=== PATIENT | male | born 1995 | race Caucasian/White ===

== ENCOUNTER 2023-11-08 06:34 | Emergency (ER) | payer BC, MEDICAID, SELFPAY ==
[2023-11-08 06:38] VITALS: BP 117/79; PULSE 72; RESP 16; TEMP 36.8; O2SAT 97; BMI 23.9
--- NOTE | 2023-11-08 06:38 | XRR_ITS ---
PROCEDURE INFORMATION: Exam: XR Left Hand Exam date and time: 11/08/2023 6:47 AM Age: 27 years old Clinical indication: Injury or trauma; Fall; Blunt trauma (contusions or hematomas); Hand; Left TECHNIQUE: Imaging protocol: Radiologic exam of the left hand. Views: 3 or more views. COMPARISON: No relevant prior studies available. FINDINGS: Bones/joints: Normal. Soft tissues: Normal. XR/XR hand LT min 3V* [id number] IMPRESSION: No acute findings.
--- NOTE | 2023-11-08 06:39 | XRR_ITS ---
PROCEDURE INFORMATION: Exam: XR Left Wrist Exam date and time: 11/08/2023 6:49 AM Age: 27 years old Clinical indication: Injury or trauma; Fall; Blunt trauma (contusions or hematomas); Wrist; Left TECHNIQUE: Imaging protocol: Radiologic exam of the left wrist. Views: 3 or more views. COMPARISON: CR XR hand LT min 3V* [id number] 11/08/2023 6:47 AM FINDINGS: Bones/joints: Normal. No acute osseous, joint, or soft tissue abnormality. Soft tissues: Normal. XR/XR wrist LT min 3V* [id number] IMPRESSION: No acute findings.
[2023-11-08 06:46] VITALS: BP 117/79; PULSE 73; RESP 16; O2SAT 96
--- NOTE | 2023-11-08 07:04 | ED_ITS ---
HPI - Extremity Injury (Upper) General: Chief Complaint: Trauma Stated Complaint: left hand injury Time Seen by Provider: 11/08/23 06:36 Source: patient Mode of arrival: ambulatory Limitations: no limitations History of Present Illness: Patient is a 27-year-old male who presents to ED today for evaluation of a left hand injury. Patient tells me just prior to arrival he was walking in his home and when he accidentally slipped and fell. Patient states he landed on his left hand and struck his knuckles on the ground. He is complaining of pain and swelling mainly to his third MCP joint. He has no other complaints or injuries at this time. MD complaint: injury to: left and hand Onset (ago): hour(s) Other Extremity Injury: Left: hand Other injuries: none Place: home Severity: moderate Relieving factors: immobilization Exacerbating factors: movement of extremity Context: fall and direct blow Associated symptoms: Reports no associated symptoms; Denies neck pain or weakness in extremities Review of Systems Musc: Reports: extremity pain (L hand), extremity swelling (L hand), joint pain (L 3rd MCP joint) and joint swelling (L 3rd MCP joint); Denies: neck pain or back pain Neuro: Denies: numbness in extremities, weakness in extremities or sensory changes [facility] ED PFSH: Medical History Psychiatric care Physical Exam Const: COMMON NORMALS: no acute distress, patient oriented x3, no limitations, alert and well nourished Extremity: COMMON NORMALS: normal to inspection, capillary refill normal, no joint enlargement and no clubbing, cyanosis or edema GENERAL: Yes normal exam except as noted LEFT UPPER EXTREMITY: Yes hand & digits Left hand and digits: Yes inspection (swelling overlying dorsal 3rd MCP joint), Yes palpation (TTP same area of concern; no bony crepitus noted), Yes ROM (limited secondary to pain) and Yes neurovascular exam (normal) Neuro: COMMON NORMALS: patient oriented x3, moves all extremities, no focal motor deficits and no sensory deficits noted SENSORIUM/ORIENTATION: Yes alert Skin: NARRATIVE SKIN EXAM: no overlying abrasions/lacerations on hand Course Vital Signs: Vital signs: Vital Signs Temperature 98.3 F 11/08/23 06:38 Pulse Rate 73 11/08/23 06:46 Respiratory Rate 16 11/08/23 06:46 Blood Pressure 117/79 11/08/23 06:46 Pulse Oximetry 96 11/08/23 06:46 Oxygen Delivery Me thod Room Air 11/08/23 06:38 MDM - Extremity Injury (Upper) Medical Decision Making XRs negative. Discussed conservative therapies at home. He can follow-up with primary care in 1 to 2 weeks if pain persists. Lab Data Radiology Impressions Hand X-Ray 11/08/23 06:38 IMPRESSION: No acute findings. Wrist X-Ray 11/08/23 06:39 IMPRESSION: No acute findings. All radiology interpretation(s) finalized by discharge Discharge Plan Discharge Patient Disposition: Home Clinical Impression: Contusion of hand, left Qualifiers: Encounter type: initial encounter Qualified Code(s): S60.222A - Contusion of left hand, initial encounter Condition: Stable Prescriptions: No Action No Known Home Medications Discharge Orders: Discharge ED (Routine); Ordered 11/08/23 Ordered By: Fela Morgan Patient Instructions: Contusion, RICE Therapy Coding Level of Care Code ED Advanced Solutions Architect for Mona Murcia
== END 2023-11-08 07:27 | disposition home or self-care (01) ==
PROVIDERS: Emergency Provider Physician Assistant
DX: S60.222A Contusion of left hand, initial encounter (principal); W18.30XA Fall on same level, unspecified, initial encounter
CPT/HCPCS: 73110; 73130; 99283

== ENCOUNTER 2023-12-22 10:43 | Inpatient (IN) | payer BC, SELFPAY ==
[2023-12-22 10:45] VITALS: BP 118/71; PULSE 78; RESP 16; TEMP 36.6; O2SAT 99
[2023-12-22 11:00] VITALS: RESP 16
[2023-12-22 11:00] LABS: Add Urine Microscopic? NO; Charge for UA Resulting for Rev
--- NOTE | 2023-12-22 11:09 | ED.C_ITS ---
HPI - Psych 2 General: Chief Complaint: Psychiatric Symptoms Stated Complaint: MHE Time Seen by Provider: 12/22/23 10:51 Source: patient Mode of arrival: ambulatory History of Present Illness: 28-year-old male presents to the emergen cy room with complaints of suicidal and homicidal ideation. He states he frequently has thoughts of harming others this morning he began to feel as if things to be better if he was not here began having thoughts of harming himself. He has not made any specific plans to harm himself or anyone else does not have any particular person that he is targeting or has thoughts of hurting specifically or in a specific way. He has not previously been admitted he is not currently on any medications he is not seen by any mental health professionals. MD complaint: suicidal ideation and feels depressed Onset (ago): unknown Duration: constant History of same: Yes Relieving factors: none Exacerbating factors: none Associated symptoms: Reports homicidal ideation and suicidal ideation; Deny auditory hallucinations, visual hallucinations, delusions, depression or racing thoughts If self harm: admits thoughts of self harm Review of Systems 2 Const: Denies: fever(s) or chills Card: Denies: chest pain Resp: Denies: dyspnea GI: Denies: abdominal pain : Denies: dysuria, urinary frequency or urinary urgency Musc: Denies: neck pain or back pain Skin/Breast: Denies: rash Psych: Reports: suicidal ideation and homicidal ideation; Denies: depression, visual hallucinations or auditory hallucinations PFSH ED 2 PFSH: Medical History Psychiatric care Social History Smoking and tobacco/nicotine status: current every day tobacco/nicotine user Physical Exam 2 Const: COMMON NORMALS: no acute distress GENERAL APPEARANCE: cooperative and comfortable ORIENTATION/CONSCIOUSNESS: Yes awake, Yes oriented to person, Yes oriented to place and Yes oriented to time HENMT: COMMON NORMALS: normocephalic, atraumatic and hearing grossly normal bilaterally HEAD & SCALP: normocephalic and atraumatic Resp: COMMON NORMALS: normal respiratory effort, No retractions, No use of accessory muscles and clear to auscultation bilaterally AUSCULTATION: clear to auscultation bilaterally Cardio: COMMON NORMALS: regular rate, regular rhythm and No murmurs present (Cardio) RATE: regular rate RHYTHM: regular rhythm GI: COMMON NORMALS: Soft to palpation and No hepatosplenomegaly present A USCULTATION: Yes normoactive bowel sounds PALPATION: Yes Soft to palpation, No Tenderness to palpation present (GI), No Guarding due to palpation present (GI) and Yes No hepatosplenomegaly present Extremity: COMMON NORMALS: normal to inspection, capillary refill normal, no clubbing, cyanosis or edema, no calf tenderness and no pedal edema Neuro: SENSORIUM/ORIENTATION: Yes oriented to person, Yes oriented to place and Yes oriented to time Psych: THOUGHT CONTENT: No delusions Skin: COMMON NORMALS: no rashes or lesions noted GENERAL SKIN EXAM: no rashes or lesions noted Course 2 Vital Signs: Vital signs: Vital Signs Temperature 98.5 F 12/27/23 06:00 Pulse Rate 59 L 12/27/23 06:00 Respiratory Rate 17 12/27/23 06:00 Blood Pressure 118/73 12/27/23 06:00 Pulse Oximetry 96 12/27/23 06:00 Oxygen Delivery Me thod Room Air 12/27/23 06:00 MDM - Psych Medical Decision Making Admitted for suicidal ideation. Discussed Dr. Carlin orders written Differential Diagnosis Likely suicidal ideation and depression Medical Records I reviewed the patient's medical records. Lab Data I reviewed the patient's lab results. 12/22/23 11:35 12/22/23 11:35 Laboratory Results WBC 4.35 10^3/uL (3.29-11.43) 12/22/23 11:35 RBC 4.78 10^6/uL (3.85-5.65) 12/22/23 11:35 Hgb 15.10 g/dL (11.27-16.99) 12/22/23 11:35 Hct 44.0 % (37-53) 12/22/23 11:35 MCV 92.1 fl (82-101) 12/22/23 11:35 MCH 31.6 pg (27-33) 12/22/23 11:35 MCHC 34.3 g/dL (30-55) 12/22/23 11:35 RDW 12.1 % (12.1-15.1) 12/22/23 11:35 Plt Count 244 10^3/cmm (157-399) 12/22/23 11:35 MPV 9.5 fL (7.4-10.4) 12/22/23 11:35 Neut % (Auto) 48.2 % 12/22/23 11:35 Lymph % (Auto) 38.2 % 12/22/23 11:35 [place] % (Auto) 6.9 % 12/22/23 11:35 Eos % (Auto) 5.1 % 12/22/23 11:35 Baso % (Auto) 1.4 % 12/22/23 11:35 Neut # (Auto) 2.10 10^3/uL (1.8-7.7) 12/22/23 11:35 Lymph # (Auto) 1.7 10^3/uL (0.8-4.8) 12/22/23 11:35 [place] # (Auto) 0.3 10^3/uL (0.2-0.9) 12/22/23 11:35 Eos # (Auto) 0.2 10^3/uL (0.0-0.8) 12/22/23 11:35 Baso # (Auto) 0.1 10^3/uL (0.0-0.1) 12/22/23 11:35 Nucleated RBC % (auto) 0 % 12/22/23 11:35 Nucleated RBCs # 0.0 /100WBC 12/22/23 11:35 Sodium 134 mmol/L (136-145) L 12/22/23 11:35 Potassium 4.1 mmol/L (3.5-5.1) 12/22/23 11:35 Chloride 99 mmol/L (98-107) 12/22/23 11:35 Carbon Dioxide 26 mmol/L (22-29) 12/22/23 11:35 Anion Gap 13.1 (5-19) 12/22/23 11:35 BUN 9 mg/dL (6-20) 12/22/23 11:35 Creatinine 1.0 mg/dL (0.7-1.2) 12/22/23 11:35 GFR Calculation 90.3 mL/min (90-130) 12/22/23 11:35 Glucose 105 mg/dL (65-115) 12/22/23 11:35 Calculated Osmolality 277 mOsm/kg (285-295) L 12/22/23 11:35 Calcium 8.7 mg/dL (8.5-10.5) 12/22/23 11:35 Total Bilirubin 0.2 mg/dL (0.15-1.2) 12/22/23 11:35 AST 20 U/L (0-40) 12/22/23 11:35 ALT 13 U/L (0-41) 12/22/23 11:35 Alkaline Phosphatase 57 U/L (40-130) 12/22/23 11:35 Total Protein 6.9 g/dL (6.6-8.7) 12/22/23 11:35 Albumin 4.2 g/dL (3.5-5.2) 12/22/23 11:35 Globulin 2.7 g/dL (1.3-4.6) 12/22/23 11:35 Urine Color Straw (Yellow) 12/22/23 10:57 Urine Appearance Clear (CLEAR) 12/22/23 10:57 Urine pH 6.5 (5-7) 12/22/23 10:57 Ur Specific [place] 1.005 (1.005-1.030) 12/22/23 10:57 Urine Protein Neg (Negative) 12/22/23 10:57 Urine Glucose (UA) Norm (Normal) 12/22/23 10:57 Urine Ketones Negative (Negative) 12/22/23 10:57 Urine Blood Neg (Negative) 12/22/23 10:57 Urine Nitrate Negative (Negative) 12/22/23 10:57 Urine Bilirubin Neg (Negative) 12/22/23 10:57 Urine Urobilinogen Neg mg/dL (Negative) 12/22/23 10:57 Ur Leukocyte Esterase Negative (Negative) 12/22/23 10:57 Salicylates < 0.3 mg/dL (3-10) L 12/22/23 11:35 Urine Opiates Screen Negative ng/mL (Negative) 12/22/23 10:57 Acetaminophen < 5.0 ug/mL (10-30) L 12/22/23 11:35 Ur Barbiturates Screen Negative ng/mL (Negative) 12/22/23 10:57 Ur Phencyclidine Scrn Negative ng/mL (Negative) 12/22/23 10:57 Ur Amphetamines Screen Negative ng/mL (Negative) 12/22/23 10:57 U Benzodiazepines Scrn Negative ng/mL (Negative) 12/22/23 10:57 Urine Cocaine Screen Negative ng/mL (Negative) 12/22/23 10:57 U Marijuana (THC) Screen Positive ng/mL (Negative) H 12/22/23 10:57 Ethyl Alcohol < 10 mg/dL (0-10) 12/22/23 11:35 No radiology studies performed this visit Discharge Plan Discharge Patient Disposition: Admitted As Inpatient Admit Provider: Jose Alfredo Dave Clinical Impression: Suicidal ideation Condition: Stable Coding Level of Care Code ED Clinique Counter Manager for Mona Murcia
[2023-12-22 11:12] LABS: Amphetamines Screen Urine Negative (Negative); Barbiturates Screen Urine Negative (Negative); Benzodiazepines Screen Urine Negative (Negative); Cocaine Screen Urine Negative (Negative); Opiate Screen Urine Negative (Negative); PCP Screen Urine Negative (Negative); THC Screen Urine Positive (Negative)
[2023-12-22 11:13] LABS: Bilirubin Urine Neg (Negative); Blood Urine Neg (Negative); Glucose Urine UA Norm (Normal); Ketones Urine Negative (Negative); Leukocyte Esterase Urine Negative (Negative); Nitrate Urine Negative (Negative); Protein Urine Neg (Negative); Specific Gravity, Urine 1.005 (1.005-1.030); Urine Appearance Clear (CLEAR); Urine Color Straw (Yellow); Urobilinogen Urine Neg (Negative); pH Urine 6.5 (5-7)
[2023-12-22 11:46] LABS: Basophils # 0.1 10^3/uL (0.0-0.1); Basophils % 1.4 %; Eosinophils # 0.2 10^3/uL (0.0-0.8); Eosinophils % 5.1 %; Lymphocytes # 1.7 10^3/uL (0.8-4.8); Lymphocytes % 38.2 %; Mean Corpuscular HGB Conc 34.3 g/dL (30-55); Mean Corpuscular Hemoglobin 31.6 pg (27-33); Mean Corpuscular Volume 92.1 fl (82-101); Mean Platelet Volume 9.5 fL (7.4-10.4); Monocytes # 0.3 10^3/uL (0.2-0.9); Monocytes % 6.9 %; Neutrophils % 48.2 %; Nucleated Red Blood Cells % 0 %; Platelet Count 244 10^3/cmm (157-399); Red Blood Count 4.78 10^6/uL (3.85-5.65); Red Cell Distribution Width 12.1 % (12.1-15.1); White Blood Count 4.35 10^3/uL (3.29-11.43)
[2023-12-22 12:07] LABS: Alanine Aminotransferase 13 U/L (0-41); Albumin Level 4.2 g/dL (3.5-5.2); Alkaline Phosphatase 57 U/L (40-130); Anion Gap 13.1 (5-19); Aspartate Amino Transferase 20 U/L (0-40); Blood Urea Nitrogen 9 mg/dL (6-20); Calcium 8.7 mg/dL (8.5-10.5); Carbon Dioxide 26 mmol/L (22-29); Chloride 99 mmol/L (98-107); Creatinine Clr Calc Pharmacy 91.4008; Globulin 2.7 g/dL (1.3-4.6); Glomerular Filtration Rate 90.3 mL/min (90-130); Glucose 105 mg/dL (65-115); Osmolality Calculated 277 mOsm/kg (285-295); Potassium 4.1 mmol/L (3.5-5.1); Sodium 134 mmol/L (136-145); Total Bilirubin 0.2 mg/dL (0.15-1.2); Total Protein 6.9 g/dL (6.6-8.7)
[2023-12-22 12:09] LABS: Acetaminophen < 5.0 ug/mL (10-30); Alcohol Level < 10 mg/dL (0-10); Salicylate < 0.3 mg/dL (3-10)
[2023-12-22 13:53] VITALS: RESP 16
[2023-12-22 17:13] VITALS: RESP 16
[2023-12-22 17:25] VITALS: BP 108/71; PULSE 70; RESP 16; TEMP 37.3; O2SAT 98
--- NOTE | 2023-12-22 18:33 | PC.NURSE ---
Admission Note Pt was admitted from our ER at 1723. Pt is calm and cooperative during admission. Pt stated that he is here because for the past 6-8 months he has been having thoughts of hurting people and this morning when he woke up this morning the thoughts were just too much to handle and it scared him. During admission pt denied SI/HI. He did endorse having auditory hallucinations. He said he hears voices telling him he is doing things wrong. Pt tested positive for THC. Pt was dressed into NPU scrubs and was orientated to the unit. Pt at 1837 is now seen down in dayroom talking conversing with other pts.
[2023-12-22 20:24] VITALS: BP 109/70; PULSE 73; RESP 16; TEMP 36.5; O2SAT 98
[2023-12-23 06:00] VITALS: BP 94/56; PULSE 88; RESP 16; TEMP 36.8; O2SAT 100
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
[2023-12-23 14:00] VITALS: BP 138/94; PULSE 78; RESP 16; TEMP 36.6; O2SAT 98
[2023-12-23] MEDS: paliperidone ER 3 mg Tablet PO (14:12)
[2023-12-23] MEDS: OLANZapine 5 mg ODT PO (14:12)
[2023-12-23 20:15] VITALS: BP 108/74; PULSE 64; RESP 16; TEMP 36.7; O2SAT 97
[2023-12-24 06:00] VITALS: BP 110/74; PULSE 87; RESP 16; O2SAT 99
[2023-12-24] MEDS: paliperidone ER 3 mg Tablet PO (08:05)
[2023-12-24 14:00] VITALS: BP 117/73; PULSE 69; RESP 16; TEMP 36.8; O2SAT 99
--- NOTE | 2023-12-24 16:15 | P.NPUPN_ITS ---
Subjective NPU 2 Subjective: 28-year-old male with a past history of trauma admitted with psychosis and increased prevalence of intrusive thoughts. Patient had reported that he had slept better for the first time in several days. He had stated that his intense violent visual intrusive images had diminished substantially in frequency with the initiation of paliperidone orally. The patient had reported that family members had indeed been concerned that he was a different person over the past few weeks. He had described having continued use of marijuana but reported abstinence from the use of methamphetamine for nearly 10 months. He had acknowledged significant genetic loading for both schizophrenia and bipolar disorder in first-degree relatives. He reported that he had had increased stress as he stated that he had visited his father in care home and had felt that his father may have been possessed. Mental Status Exam 2 MSE Comments: Patient is a healthy white male who appeared his stated age with fair eye contact and no evidence of any abnormal involuntary motor movements tics or tremors appreciated. His speech was normal in regards to rhythm and prosody with some decrease in volume and some slight increase in speech latency. His gait was within normal limits. His hygiene was fair. He described his mood as better. His affect remained flat. He had endorsed suicidal ideation with no plan currently. He denied any homicidal ideation but endorsed violent intrusive thoughts. There was no clear evidence of delusional thinking. He did not appear to be responding to internal stimuli. He was alert and oriented to person place time and situation. His recent remote memory appear grossly intact. His insight is fair. His judgment appeared poor. His impulse control appeared limited. Vitals/I&O/Wt Last Vital Signs Temp 98.3 F 12/24/23 14:00 Pulse 69 12/24/23 14:00 Resp 16 12/24/23 14:00 BP 117/73 12/24/23 14:00 Pulse Ox 99 12/24/23 14:00 O2 Del Method Room Air 12/24/23 14:00 Weight last 48 hrs Weight 56.971 kg Data NPU 12/22/23 11:35 12/22/23 11:35 A&P Assessment and plan (1) Psychosis not due to substance or known physiological condition: (2) Methamphetamine abuse in remission: Plan 28-year-old male with a history of reported problems with anger currently in remission for the last 10 months from methamphetamine abuse who reports increased intrusive thoughts and violent intrusive images requesting help. Patient would benefit from continued inpatient hospitalization. ?1. Encourage individual, group and milieu therapy. ?2.Recommend sober living treatment at the highest level of care to which the patient is willing to commit. 3.Continue q-15 minute checks for safety.? 4. Continue invega 3mg daily. patient appears improved currently. 5. Will attempt to gather collateral information. Involuntary Hold Information 2 96 Hour Hold: 96 Hour Involuntary Admission: No Attestations NPU 2 Medical Necessity Statement*: Inpatient hospitalization is medically necessary and deemed to ?be ?the clinically appropriate intervention ?at this time.? We will monitor/initiate medications and make changes as indicated.? The patient will be in the hospital for over 2 midnights.? The patient?s likely length of stay is 4-6 days. Coding Level of Care Code Acute Code for Chg Fwd Diagnoses Psychosis not due to substance or known physiological condition F29 Methamphetamine abuse in remission F15.11
[2023-12-24] MEDS: hyDROXYzine 25 mg Capsule 50 MG PO (16:47)
[2023-12-24] MEDS: OLANZapine 5 mg ODT PO (17:40)
[2023-12-24 20:12] VITALS: BP 107/62; PULSE 87; RESP 17; TEMP 36.6; O2SAT 98
[2023-12-25 06:00] VITALS: BP 123/73; PULSE 93; RESP 18; TEMP 36.8; O2SAT 98
[2023-12-25] MEDS: paliperidone ER 3 mg Tablet PO (08:25)
[2023-12-25 14:00] VITALS: BP 124/72; PULSE 68; RESP 16; TEMP 36.2; O2SAT 97
--- NOTE | 2023-12-25 16:09 | P.NPUPN_ITS ---
Subjective NPU 2 Subjective: 28-year-old male with a past history of trauma admitted with psychosis and increased prevalence of intrusive thoughts. The patient had complained of some dizziness but stated that his thoughts were better. He had reported that he had been extremely distracted by his intrusive thoughts and his own voice along with the violent visual images that was appearing internally for the past several months. He appeared less anxious on the milieu. He did not endorse any PTSD related symptoms today. He had reported having less frequent and intense intrusive violent thoughts with no thoughts of hurting himself or others. Mental Status Exam 2 MSE Comments: Patient is a healthy white male who appeared his stated age with fair eye contact and no evidence of any abnormal involuntary motor movements tics or tremors appreciated. His speech was normal in regards to rhythm and prosody with decrease in volume with attentuation in speech latency. His gait was within normal limits. His hygiene was fair. He described his mood as better. His affect was blunted. He denied suicidal ideation. He denied any homicidal ideation and endorsed fleeting violent intrusive thoughts. There was no clear evidence of delusional thinking. He did not appear to be responding to internal stimuli. He was alert and oriented to person place time and situation. His recent remote memory appear grossly intact. His insight is fair. His judgment appeared poor. His impulse control appeared limited. Vitals/I&O/Wt Last Vital Signs Temp 97.2 F L 12/25/23 14:00 Pulse 68 12/25/23 14:00 Resp 16 12/25/23 14:00 BP 124/72 12/25/23 14:00 Pulse Ox 97 12/25/23 14:00 O2 Del Method Room Air 12/24/23 20:12 Weight last 48 hrs Weight 56.971 kg Data NPU 12/22/23 11:35 12/22/23 11:35 A&P Assessment and plan (1) Psychosis not due to substance or known physiological condition: (2) Methamphetamine abuse in remission: Plan 28-year-old male with a history of reported problems with anger currently in remission for the last 10 months from methamphetamine abuse who reports increased intrusive thoughts and violent intrusive images requesting help. Patient would benefit from continued inpatient hospitalization. ?1. Encourage individual, group and milieu therapy. ?2.Recommend sober living treatment at the highest level of care to which the patient is willing to commit. 3.Continue q-15 minute checks for safety.? 4. Continue invega 3mg daily. patient continues to show improvement. 5. Will attempt to gather collateral information. Involuntary Hold Information 2 96 Hour Hold: 96 Hour Involuntary Admission: No Attestations NPU 2 Medical Necessity Statement*: Inpatient hospitalization is medically necessary and deemed to ?be ?the clinically appropriate intervention ?at this time.? We will monitor/initiate medications and make changes as indicated.? The patient?s likely length of stay is 4-6 days. Coding Level of Care Code Acute Code for Chg Fwd Diagnoses Psychosis not due to substance or known physiological condition F29 Methamphetamine abuse in remission F15.11
[2023-12-25] MEDS: hyDROXYzine 25 mg Capsule 50 MG PO (17:18)
--- NOTE | 2023-12-25 17:29 | PC.NURSE ---
Addendum entered by Linh Duarte LPN 12/25/23 18:21: prn med effective, patient voiced relief from anxiety Original Note: PRN VISTARIL VISTARIL 50 MG GIVEN PO PER PT C/O STATED ANXIETY, ANXIOUS ABOUT GETTING STARTED ON INVEGA BY PHYSICIAN.
[2023-12-25 20:58] VITALS: BP 113/72; PULSE 77; RESP 15; TEMP 36.5; O2SAT 98
[2023-12-26 06:00] VITALS: BP 120/75; PULSE 59; RESP 15; TEMP 36.3; O2SAT 99
--- NOTE | 2023-12-26 13:19 | P.NPUPN_ITS ---
Subjective NPU 2 Subjective: 28-year-old male with a past history of trauma admitted with psychosis and increased prevalence of intrusive thoughts with an extended history of thc abuse and previous methamphetamine abuse. The patient had reported feeling better. He did report feeling somewhat tired. He had been able to attend groups and appeared more social on the milieu. He had reported that the intrusive thoughts were significantly better and the images had nearly gone away and his mind. He had reported that his thoughts felt clearer. He had denied any depressed mood at this time. Mental Status Exam 2 MSE Comments: Patient is a healthy white male who appeared his stated age with fair eye contact and no evidence of any abnormal involuntary motor movements tics or tremors appreciated. His speech was normal in regards to rhythm and prosody with diminished volume with some increase in speech latency present. His gait was within normal limits. His hygiene was poor. He described his mood as better. His affect remained blunted and mood incongruent. He denied suicidal ideation. He denied any homicidal ideation and endorsed intermittent violent intrusive thoughts. There was no clear evidence of delusional thinking. He did at times appear to be responding to internal stimuli. He was alert and oriented to person place time and situation. His recent remote memory appear grossly intact. His insight is fair. His judgment appeared poor. His impulse control appeared limited. Vitals/I&O/Wt Last Vital Signs Temp 97.3 F L 12/26/23 06:00 Pulse 59 L 12/26/23 06:00 Resp 15 12/26/23 06:00 BP 120/75 12/26/23 06:00 Pulse Ox 99 12/26/23 06:00 O2 Del Method Room Air 12/26/23 06:00 Data NPU 12/22/23 11:35 12/22/23 11:35 A&P Assessment and plan (1) Psychosis not due to substance or known physiological condition: (2) Methamphetamine abuse in remission: Plan 28-year-old male with a history of reported problems with anger currently in remission for the last 10 months from methamphetamine abuse who reports increased intrusive thoughts and violent intrusive images requesting help. Patient would benefit from continued inpatient hospitalization. ?1. Encourage individual, group and milieu therapy. ?2.Recommend sober living treatment at the highest level of care to which the patient is willing to commit. 3.Continue q-15 minute checks for safety.? 4. Continue invega 3mg at night. patient continues to show improvement. 5. Will attempt to gather collateral information. Involuntary Hold Information 2 96 Hour Hold: 96 Hour Involuntary Admission: No Attestations NPU 2 Medical Necessity Statement*: Inpatient hospitalization is medically necessary and deemed to ?be ?the clinically appropriate intervention ?at this time.? We will monitor/initiate medications and make changes as indicated.? The patient?s likely length of stay is 4-6 days. Coding Level of Care Code Acute Code for Chg Fwd Diagnoses Psychosis not due to substance or known physiological condition F29 Methamphetamine abuse in remission F15.11
[2023-12-26 13:57] VITALS: BP 121/74; PULSE 57; RESP 16; TEMP 36.9; O2SAT 100
[2023-12-26 19:57] VITALS: BP 120/81; PULSE 69; RESP 15; TEMP 36.6; O2SAT 98
[2023-12-26] MEDS: paliperidone ER 3 mg Tablet PO (19:58)
[2023-12-27 06:00] VITALS: BP 118/73; PULSE 59; RESP 17; TEMP 36.9; O2SAT 96
[2023-12-27 11:36] VITALS: BP 118/73; PULSE 59; RESP 17; TEMP 36.9; O2SAT 96
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
== END 2023-12-27 12:08 | disposition home or self-care (01) | DRG 885 ==
LOC: ER 11:11 → NP 17:09
PROVIDERS: Admitting Provider Psychiatry & Neurology Psychiatry; Emergency Provider Family Medicine; Visit Provider Psychiatry & Neurology Psychiatry
DX: F29 Unspecified psychosis not due to a substance or known physiological condition (principal); F41.9 Anxiety disorder, unspecified; F12.90 Cannabis use, unspecified, uncomplicated; F15.11 Other stimulant abuse, in remission; F17.200 Nicotine dependence, unspecified, uncomplicated; Z81.3 Family history of other psychoactive substance abuse and dependence; Z81.8 Family history of other mental and behavioral disorders
CPT/HCPCS: 80053; 80306; 80307; 81003; 85025; 97150; 97165; 99285

== ENCOUNTER → 2024-03-11 09:50 | Outpatient (BNVA) | payer BC, SELFPAY | PROVIDERS: Visit Provider Nurse Practitioner | DX: Z79.899 Other long term (current) drug therapy (principal) | CPT/HCPCS: 80061; 83036 ==

== ENCOUNTER 2024-07-11 13:22 | Outpatient (CLI) | payer BC, MEDICAID, SELFPAY ==
--- NOTE | 2024-07-11 13:24 | US_ITS ---
WS: [id number] ULTRASOUND BREAST LEFT TECHNIQUE: Ultrasound left breast focused area of concern. CLINICAL INFORMATION: LEFT LUMP SWELLING MASS TRUNK COMPARISON: None. FINDINGS: Ultrasound subareolar LEFT breast. Hypoechoic tissue in the area of concern subareolar LEFT breast wi th ultrasound findings compatible with gynecomastia. No cystic or solid lesions to target for biopsy. Comparison RIGHT breast is normal in appearance. No other suspicious findings. US/US breast LT limited* [id number] IMPRESSION: BI-RADS 2 benign
== END 2024-07-11 13:23 | disposition home or self-care (01) ==
PROVIDERS: PCP Nurse Practitioner Family; Visit Provider Nurse Practitioner Family
DX: N62 Hypertrophy of breast (principal)
CPT/HCPCS: 76642

== ENCOUNTER → 2025-04-28 10:43 | Outpatient (BNVA) | payer BC, SELFPAY | PROVIDERS: PCP Nurse Practitioner Family; Visit Provider Nurse Practitioner | DX: Z79.899 Other long term (current) drug therapy (principal) | CPT/HCPCS: 80061; 83036 ==